=== PATIENT | female | born 2000 | race Caucasian/White ===

== ENCOUNTER 2018-02-10 11:23 | Emergency (ER) | payer OTHER, MEDICAID | END 2018-02-10 12:00 | disposition home or self-care (01) | LOC: M ED 11:23 | DX: S61.304A Unspecified open wound of right ring finger with damage to nail, initial encounter (principal); G43.909 Migraine, unspecified, not intractable, without status migrainosus; X58.XXXA Exposure to other specified factors, initial encounter; Y92.9 Unspecified place or not applicable; Y93.9 Activity, unspecified; Y99.9 Unspecified external cause status; Z88.8 Allergy status to other drugs, medicaments and biological substances; Z91.018 Allergy to other foods | CPT/HCPCS: 99282 ==